=== PATIENT | female | born 1950 | race Caucasian/White ===

== ENCOUNTER 2017-06-10 01:39 | Emergency (ER) | payer MEDICAID, MEDICARE, OTHER ==
[~2017-06-10] VITALS: Ht 157.5 cm; Wt 64.0 kg
[2017-06-10] MEDS ORDERED: ONDANSETRON 2MG/ML, 2ML ONE (02:30)
[2017-06-10] MEDS ORDERED: SODIUM CHLORIDE 0.9% 1,000ML IVBOLUS ONE (02:30)
[2017-06-10] MEDS ORDERED: ONDANSETRON 2MG/ML, 2ML IVPush ONE (02:30)
[2017-06-10] MEDS ORDERED: MORPHINE SULFATE 4 MG/ML, 1ML IVPush PRN (02:30)
[2017-06-10] MEDS ORDERED: MORPHINE SULFATE 4 MG/ML, 1ML ONE (02:30)
[2017-06-10 03:05] LABS: ASPARTATE AMINO TRANSFERASE 18 U/L (15-37); BLOOD UREA NITROGEN 12 mg/dL (7-18)
[2017-06-10] MEDS ORDERED: KETOROLAC 30 MG/1 ML ONE (03:15)
[2017-06-10] MEDS ORDERED: OMNIPAQUE 350 MG/ML, 100ML BOTTLE ONE (03:29)
[2017-06-10] MEDS ORDERED: KETOROLAC 30 MG/1 ML IVPush ONE (03:30)
[2017-06-10 04:53] VITALS: BP 123/75
== END 2017-06-10 04:57 | disposition left against medical advice (07) ==
LOC: ED 04:51
DX: A09 Infectious gastroenteritis and colitis, unspecified (principal); K56.60 Unspecified intestinal obstruction; R10.84 Generalized abdominal pain; E78.00 Pure hypercholesterolemia, unspecified; Z85.038 Personal history of other malignant neoplasm of large intestine
CPT/HCPCS: 36415; 74177; 80053; 81003; 83690; 85025; 96361; 96374; 96375; 99285; J1885; J2405; J7030; Q9967

== ENCOUNTER 2018-08-24 18:44 | Emergency (ER) | payer MEDICAID, MEDICARE, OTHER ==
[~2018-08-24] VITALS: Ht 157.5 cm; Wt 62.7 kg
[2018-08-24] MEDS ORDERED: SODIUM CHLORIDE 0.9% 1,000ML IVBOLUS ONE (20:00)
[2018-08-24] MEDS ORDERED: SODIUM CHLORIDE FLUSH 10ML SYR IVF ONE (20:00)
[2018-08-24] MEDS ORDERED: ONDANSETRON ODT 4 MG PO ONE (20:00)
[2018-08-24] MEDS ORDERED: ONDANSETRON ODT 4 MG ONE (20:07)
[2018-08-24 20:17] LABS: BASOPHILS # (AUTO) 0.02 x10^3/uL (0-0.1); BASOPHILS % (AUTO) 0 % (0-1); EOSINOPHILS # (AUTO) 0.23 x10^3/uL (0-0.4); EOSINOPHILS % (AUTO) 2 % (1-7); LYMPHOCYTES # (AUTO) 1.19 x10^3/uL (1-3.4); LYMPHOCYTES % (AUTO) 8 % (22-44); MD NO; MEAN CORPUSCULAR HEMOGLOBIN 30.8 pg (27.0-34.8); MEAN CORPUSCULAR HGB CONC 33.4 g/dL (32.4-35.8); MEAN CORPUSCULAR VOLUME 92.1 fL (80-100); MEAN PLATELET VOLUME 8.9 fL (7.4-10.4); MONOCYTES % (AUTO) 4 % (2-9); NEUTROPHILS % (AUTO) 87 % (42-75); PLATELET COUNT 317 x10^3/uL (130-400); RED BLOOD COUNT 4.87 x10^6/uL (3.82-5.3); RED CELL DISTRIBUTION WIDTH 14.5 % (9.6-15.2)
[2018-08-24 20:23] LABS: ALANINE AMINOTRANSFERASE 22 U/L (12-78); ALBUMIN 4.2 g/dL (3.4-5.0); ANION GAP 8 mmol/L (5-15); CALCIUM 9.6 mg/dL (8.5-10.1); CHLORIDE 101 mmol/L (98-107); CREATININE 0.84 mg/dL (0.55-1.02)
[2018-08-24 20:26] LABS: ALKALINE PHOSPHATASE 94 U/L (45-117); BILIRUBIN,TOTAL 0.3 mg/dL (0.2-1.0); TOTAL PROTEIN 7.9 g/dL (6.4-8.2)
[2018-08-24] MEDS ORDERED: KETOROLAC 30 MG/1 ML ONE (20:57)
[2018-08-24] MEDS ORDERED: DICYCLOMINE 20 MG TABLET ONE (20:58)
[2018-08-24] MEDS ORDERED: KETOROLAC 30 MG/1 ML IVPush ONE (21:00)
[2018-08-24] MEDS ORDERED: DICYCLOMINE 20 MG TABLET PO ONE (21:00)
[2018-08-24 21:04] VITALS: BP 133/85
== END 2018-08-24 21:31 | disposition home or self-care (01) ==
LOC: ED 21:05
DX: R10.32 Left lower quadrant pain (principal); R10.84 Generalized abdominal pain; R11.2 Nausea with vomiting, unspecified; E78.00 Pure hypercholesterolemia, unspecified; Z60.2 Problems related to living alone; Z85.038 Personal history of other malignant neoplasm of large intestine
CPT/HCPCS: 36415; 74022; 80053; 85025; 96361; 96374; 99285; J1885; J7030; Q0162

== ENCOUNTER 2019-02-26 21:22 | Inpatient (IN) | payer MEDICARE, OTHER ==
[~2019-02-26] VITALS: Ht 157.5 cm; Wt 64.6 kg
--- NOTE | 2019-02-26 21:42 | NUR ---
PT. TO ED FOR C/O DIFFUSE ABD PAIN, V/V/D X 2 HOURS. DENIES ANY RECENT ILLNESS OR ANTIBIOTIC USE. REPORTS HX OF COLON CA AND MULTIPLE ABD SX IN [id number]. DOESN'T TAKE ANY HOME MEDS. CONTINUOUS PULSE OX AND B/P MONITORS APPLIED. CALL LIGHT IN REACH.
--- NOTE | 2019-02-26 21:43 | NUR ---
DR. GHOTRA HAS BEEN IN TO EVAL PT. AND DISCUSS POC.
[2019-02-26] MEDS ORDERED: ONDANSETRON 2MG/ML, 2ML ONE (21:56)
[2019-02-26] MEDS ORDERED: ONDANSETRON 2MG/ML, 2ML IVPush ONE (22:00)
[2019-02-26] MEDS ORDERED: MORPHINE SULFATE 4 MG/ML, 1ML IVPush PRN (22:00)
--- NOTE | 2019-02-26 22:00 | NUR ---
IV ESTABLISHED, BLOOD DRAWN, PT. MEDICATED PER MAR. AWAITING CT, AWARE OF NEED FOR URINE SAMPLE; UNABLE TO PROVIDE AT THIS TIME. CALL LIGHT IN REACH.
[2019-02-26 22:03] LABS: BASOPHILS # (AUTO) 0.02 x10^3/uL (0-0.1); BASOPHILS % (AUTO) 0 % (0-1); EOSINOPHILS # (AUTO) 0.12 x10^3/uL (0-0.4); EOSINOPHILS % (AUTO) 1 % (1-7); LYMPHOCYTES # (AUTO) 1.43 x10^3/uL (1-3.4); LYMPHOCYTES % (AUTO) 10 % (22-44); MD NO; MEAN CORPUSCULAR HEMOGLOBIN 29.5 pg (27.0-34.8); MEAN CORPUSCULAR HGB CONC 32.4 g/dL (32.4-35.8); MEAN CORPUSCULAR VOLUME 91.3 fL (80-100); MEAN PLATELET VOLUME 8.8 fL (7.4-10.4); MONOCYTES # (AUTO) 0.48 x10^3/uL (0.2-0.8); MONOCYTES % (AUTO) 3 % (2-9); NEUTROPHILS # (AUTO) 11.86 x10^3/uL (1.8-6.8); NEUTROPHILS % (AUTO) 85 % (42-75); PLATELET COUNT 336 x10^3/uL (130-400); RED BLOOD COUNT 5.29 x10^6/uL (3.82-5.3); RED CELL DISTRIBUTION WIDTH 14.7 % (9.6-15.2)
[2019-02-26 22:13] LABS: ALANINE AMINOTRANSFERASE 28 U/L (12-78); ALBUMIN 4.7 g/dL (3.4-5.0); ANION GAP 10 mmol/L (5-15); CALCIUM 10.4 mg/dL (8.5-10.1); CHLORIDE 101 mmol/L (98-107); CREATININE 0.95 mg/dL (0.55-1.02)
[2019-02-26 22:17] LABS: ALKALINE PHOSPHATASE 94 U/L (45-117); BILIRUBIN,TOTAL 0.5 mg/dL (0.2-1.0); TOTAL PROTEIN 8.4 g/dL (6.4-8.2); TROPONIN I < 0.015 ng/mL (0.000-0.045)
--- NOTE | 2019-02-26 22:34 | NUR ---
PT OUT OF ROOM FOR CT.
--- NOTE | 2019-02-26 22:48 | NUR ---
PT. REPORTS NO PAIN AT THIS TIME. CT COMPLETED. PT. UNABLE TO PROVIDE URINE SAMPLE AT THIS TIME BUT REMAINS AWARE FOR NEED.
--- NOTE | 2019-02-26 23:15 | NUR ---
DR. GHOTRA IN TO DISCUSS POC WITH PT.
[2019-02-26] MEDS ORDERED: OMNIPAQUE 350 MG/ML, 100ML BOTTLE ONE (23:39)
[2019-02-27] MEDS ORDERED: MORPHINE SULFATE 4 MG/ML, 1ML IVPush PRN
[2019-02-27] MEDS ORDERED: SODIUM CHLORIDE 0.9% 1,000ML IVBOLUS ONE
--- NOTE | 2019-02-27 00:12 | NUR ---
NG TUBE APPLIED AT THIS TIME. CHECKED W/ ASPIRATION AND AUSCULTATION. SET UP TO LOW CONTINUOUS SUCTION PER MD VERBAL ORDER.
--- NOTE | 2019-02-27 00:19 | NUR ---
[facility] AT TO EVAL PT. FOR ADMISSION.
[2019-02-27] MEDS: SODIUM CHLORIDE 0.9% 1,000 ML IV ONE ×2 (00:21→00:22)
[2019-02-27] MEDS: SODIUM CHLORIDE 0.9% 1,000 ML IV SCH ×3 (00:22→20:03)
[2019-02-27] MEDS ORDERED: KETOROLAC 30 MG/1 ML ONE (00:25)
[2019-02-27] MEDS ORDERED: ONDANSETRON 2MG/ML, 2ML ONE (00:28)
[2019-02-27] MEDS ORDERED: ONDANSETRON 2MG/ML, 2ML IVPush PRN ×2 (00:30)
[2019-02-27] MEDS: BISACODYL 10 MG SUPP PR SCH ×2 (00:30→05:12)
[2019-02-27] MEDS ORDERED: morphine SULFATE 10 MG/ML, 1ML IVPush PRN (00:30)
[2019-02-27] MEDS: KETOROLAC 30 MG/1 ML IVPush SCH ×4 (00:32→18:30)
[2019-02-27 01:56] VITALS: BP 118/77
[2019-02-27 04:51] LABS: MICROSCOPIC NOT IND
[2019-02-27 04:54] LABS: CULTURE INDICATED? NO
[2019-02-27 05:26] LABS: MEAN CORPUSCULAR HEMOGLOBIN 30.2 pg (27.0-34.8); MEAN CORPUSCULAR VOLUME 91.7 fL (80-100); MEAN PLATELET VOLUME 8.7 fL (7.4-10.4); PLATELET COUNT 300 x10^3/uL (130-400); RED CELL DISTRIBUTION WIDTH 14.9 % (9.6-15.2)
[2019-02-27 05:28] LABS: CHLORIDE 104 mmol/L (98-107)
[2019-02-27 05:44] LABS: ALANINE AMINOTRANSFERASE 21 U/L (12-78); ALBUMIN 3.7 g/dL (3.4-5.0); ALKALINE PHOSPHATASE 77 U/L (45-117); ANION GAP 5 mmol/L (5-15); BILIRUBIN,TOTAL 0.5 mg/dL (0.2-1.0); CREATININE 0.73 mg/dL (0.55-1.02); TOTAL PROTEIN 6.9 g/dL (6.4-8.2)
[2019-02-27 05:58] LABS: BASOPHILS # (AUTO) 0.01 x10^3/uL (0-0.1); BASOPHILS % (AUTO) 0 % (0-1); EOSINOPHILS # (AUTO) 0.08 x10^3/uL (0-0.4); EOSINOPHILS % (AUTO) 1 % (1-7); LYMPHOCYTES # (AUTO) 0.66 x10^3/uL (1-3.4); LYMPHOCYTES % (AUTO) 4 % (22-44); MONOCYTES # (AUTO) 0.73 x10^3/uL (0.2-0.8); MONOCYTES % (AUTO) 4 % (2-9); NEUTROPHILS # (AUTO) 15.74 x10^3/uL (1.8-6.8); NEUTROPHILS % (AUTO) 91 % (42-75)
[2019-02-27 06:45] VITALS: BP 105/73
[2019-02-27 06:51] LABS: MD SCAN
[2019-02-27 13:48] VITALS: BP 128/85
[2019-02-27 19:04] VITALS: BP 128/86
[2019-02-28] MEDS: KETOROLAC 30 MG/1 ML IVPush SCH ×4 (00:30→18:30)
[2019-02-28 02:00] VITALS: BP 126/71
[2019-02-28] MEDS: SODIUM CHLORIDE 0.9% 1,000 ML IV SCH ×2 (06:02→20:11)
[2019-02-28 06:08] LABS: BASOPHILS # (AUTO) 0.02 x10^3/uL (0-0.1); BASOPHILS % (AUTO) 0 % (0-1); EOSINOPHILS # (AUTO) 0.26 x10^3/uL (0-0.4); EOSINOPHILS % (AUTO) 3 % (1-7); LYMPHOCYTES # (AUTO) 1.67 x10^3/uL (1-3.4); LYMPHOCYTES % (AUTO) 19 % (22-44); MD NO; MEAN CORPUSCULAR HGB CONC 33.7 g/dL (32.4-35.8); MEAN CORPUSCULAR VOLUME 91.9 fL (80-100); MEAN PLATELET VOLUME 8.9 fL (7.4-10.4); MONOCYTES # (AUTO) 0.69 x10^3/uL (0.2-0.8); MONOCYTES % (AUTO) 8 % (2-9); NEUTROPHILS # (AUTO) 6.35 x10^3/uL (1.8-6.8); NEUTROPHILS % (AUTO) 71 % (42-75); PLATELET COUNT 240 x10^3/uL (130-400); RED BLOOD COUNT 4.04 x10^6/uL (3.82-5.3); RED CELL DISTRIBUTION WIDTH 14.3 % (9.6-15.2)
[2019-02-28 06:14] LABS: CHLORIDE 108 mmol/L (98-107)
[2019-02-28 06:21] LABS: ALANINE AMINOTRANSFERASE 16 U/L (12-78); ALBUMIN 3.2 g/dL (3.4-5.0); ALKALINE PHOSPHATASE 63 U/L (45-117); ANION GAP 5 mmol/L (5-15); BILIRUBIN,TOTAL 0.5 mg/dL (0.2-1.0); CALCIUM 8.6 mg/dL (8.5-10.1); CREATININE 0.53 mg/dL (0.55-1.02)
[2019-02-28] MEDS ORDERED: POTASSIUM CHLORIDE 40 MEQ in SODIUM CHLORIDE 0.9% 500 ML IV ONE (08:00)
[2019-02-28 08:09] VITALS: BP 124/78
[2019-02-28] MEDS: BISACODYL 10 MG SUPP PR SCH (09:00)
[2019-02-28] MEDS ORDERED: ACETAMINOPHEN 325 MG TABLET PO PRN (12:00)
[2019-02-28 12:49] VITALS: BP 135/81
[2019-02-28 18:56] VITALS: BP 137/79
[2019-03-01 00:15] VITALS: BP 122/73
[2019-03-01] MEDS: KETOROLAC 30 MG/1 ML IVPush SCH ×2 (00:30→05:55)
[2019-03-01] MEDS: SODIUM CHLORIDE 0.9% 1,000 ML IV SCH (05:54)
[2019-03-01 06:05] LABS: ANION GAP 8 mmol/L (5-15); CALCIUM 8.3 mg/dL (8.5-10.1); CHLORIDE 107 mmol/L (98-107)
[2019-03-01 06:06] LABS: CREATININE 0.47 mg/dL (0.55-1.02)
[2019-03-01 08:00] VITALS: BP 132/71
[2019-03-01] MEDS ORDERED: POTASSIUM CHLORIDE 20 MEQ TAB.ER.PRT PO ONE (09:30)
[2019-03-01] MEDS ORDERED: DOCUSATE 100 MG CAPSULE PO SCH (09:30)
[2019-03-01] MEDS: BISACODYL 10 MG SUPP PR SCH (11:01)
[2019-03-01] MEDS ORDERED: DOCU-131 PO (14:02)
[2019-03-01] MEDS ORDERED: POLY17PO5 PO (14:02)
== END 2019-03-01 15:02 | disposition home or self-care (01) | DRG 390 ==
LOC: ED 22:44 → EDIP 23:58 → 4NOR 02-27 01:15 → DCLOUNGE 03-01 14:49
PROVIDERS: ADMIT Family Medicine; ATTEND Family Medicine
PROC: 0D9670Z Drainage of Stomach with Drainage Device, Via Natural or Artificial Opening (ICD-10-PCS; principal; 2019-02-27)
DX: K56.50 Intestinal adhesions [bands], unspecified as to partial versus complete obstruction (principal); D72.829 Elevated white blood cell count, unspecified; E78.00 Pure hypercholesterolemia, unspecified; E78.5 Hyperlipidemia, unspecified; E87.6 Hypokalemia; Z80.3 Family history of malignant neoplasm of breast; Z82.49 Family history of ischemic heart disease and other diseases of the circulatory system; Z85.038 Personal history of other malignant neoplasm of large intestine; Z92.21 Personal history of antineoplastic chemotherapy; Z90.49 Acquired absence of other specified parts of digestive tract; Z90.89 Acquired absence of other organs
CPT/HCPCS: 36415; 74018; 74177; 74245; 80048; 80053; 81003; 83690; 83735; 84100; 84145; 84484; 85025; 87040; 96361; 96374; G0378; J1885; J2405; J3480; Q9967; J7030; J7040